=== PATIENT | female | born 1975 | race Hispanic/Latino ===

== ENCOUNTER → 2024-07-09 | Day surgery (SDC) | payer OTHER ==
[~2024-07-09] MED LIST: B COMPLEX1 EACH PO; BERBERINE PO; CINNAMON PO; COPPER PO; FOLATE PO; GLUCAGON FOR INJ 1 MG VIAL ONE; HYOSCYAMINE SULFATE 0.5 MG/ML INJ ONE; IRON325 M1 PO; LIDOCAINE HCL 2% LOCAL INJ 5 ML SDV VIAL INJ ONE; LOSARTAN-HCTZ1 EACH PO; MAGNESIUM PO; MILK THISTLE PO; OMEGA 3 FISH O1 EACH PO; OMEGA 7 PO; PROPOFOL IV EMULSION 10 MG/ML 20 ML VIAL ONE; PROPOFOL IV EMULSION 50 ML IV ONE; VITAMIN D PO; ZINC PO
[2024-07-09] MEDS: LACTATED RINGER'S 1,000 ML ONE (10:08)
[2024-07-09 12:54] VITALS: TEMP 97.8
[2024-07-09 13:10] VITALS: BP 134/89; PULSE 73; RESP 15; O2SAT 98
== END | disposition home or self-care (01) ==
LOC: OR 09:23
PROVIDERS: ATTEND Internal Medicine Gastroenterology
DX: K59.00 Constipation, unspecified (principal); D64.89 Other specified anemias; K21.9 Gastro-esophageal reflux disease without esophagitis; R11.0 Nausea; R14.0 Abdominal distension (gaseous); K92.1 Melena; I10 Essential (primary) hypertension; E55.9 Vitamin D deficiency, unspecified; Z98.84 Bariatric surgery status; Z68.37 Body mass index [BMI] 37.0-37.9, adult; K31.9 Disease of stomach and duodenum, unspecified; K21.00 Gastro-esophageal reflux disease with esophagitis, without bleeding; I51.89 Other ill-defined heart diseases; F17.210 Nicotine dependence, cigarettes, uncomplicated; E66.01 Morbid (severe) obesity due to excess calories; K64.8 Other hemorrhoids; K57.90 Diverticulosis of intestine, part unspecified, without perforation or abscess without bleeding
CPT/HCPCS: 43239; 45378; 81025; 93005; J1610; J1980; J2003; J2470; J2704 ×2; J7121